=== PATIENT | male | born 1985 | race Caucasian/White ===

== ENCOUNTER 2018-04-09 15:23 | Emergency (ER) | payer MEDICAID ==
[~2018-04-09] VITALS: Ht 160 cm; Wt 70.0 kg
[2018-04-09] MEDS ORDERED: TETANUS, DIPHTHERIA, PERTUSSIS VAC/PF 0.5ML (>7YR OLD) IM ONE (19:15)
[2018-04-09 19:32] VITALS: BP 147/88
== END 2018-04-09 19:37 | disposition home or self-care (01) ==
LOC: ER 15:23
DX: S61.411A Laceration without foreign body of right hand, initial encounter (principal); W45.8XXA Other foreign body or object entering through skin, initial encounter; Y93.89 Activity, other specified; Y92.89 Other specified places as the place of occurrence of the external cause; Y99.8 Other external cause status
CPT/HCPCS: 12002; 90471; 90715; 99283; Z7610